=== PATIENT | female | born 2000 | race Caucasian/White ===

== ENCOUNTER 2021-12-26 20:28 | Emergency (ER) | payer OTHER ==
[2021-12-26 22:24] LABS: BASOPHIL 0.3 % (0-2); EOSINOPHIL 1.7 % (0-5); HCT 44.3 % (37.0-47.0); HGB 14.4 g/dl (12.5-16.0); LYMPHOCYTE 23.5 % (15-48); MCH 28.3 pg (25.0-31.0); MCHC 32.5 g/dL (32.0-36.0); MONOCYTE 9.6 % (0-12); MPV 8.9 fL (6.0-9.5); NEUTROPHIL 64.5 % (41-80); NRBC 0; PLT 443 K/uL (150-400); RBC 5.09 M/uL (4.20-5.40); RDW 12.6 % (11.5-14.0); WBC 15.4 K/uL (4.0-10.5)
[2021-12-26 22:24] LABS: BILIRUBIN NEGATIVE (NEGATIVE); BLOOD NEGATIVE Ery/uL (NEGATIVE); CLARITY CLEAR (CLEAR); COLOR YELLOW (YELLOW); GLUCOSE (U) NORMAL (NORMAL); LEUKOCYTES NEGATIVE Leu/uL (NEGATIVE); NITRITE NEGATIVE (NEGATIVE); PROTEIN NEGATIVE (NEGATIVE); SPECIFIC GRAVITY 1.025 (1.001-1.030); UROBILINOGEN 0.2 mg/dL (0.2-1.0)
[2021-12-26 22:45] LABS: ALBUMIN 3.9 g/dL (3.4-5.0); BILIRUBIN - TOTAL 0.2 mg/dL (0.2-1.0); BUN/CREAT RATIO (CALC) 15.6 RATIO; CREATININE 0.64 mg/dL (0.51-0.95); GLOBULIN (CALCULATION) 3.4 g/dL; POTASSIUM 3.8 mmol/L (3.5-5.1); TOTAL PROTEIN 7.3 g/dL (6.4-8.2)
[2021-12-26] MEDS ORDERED: NAPROXEN500 MG PO (23:23)
[2021-12-26] MEDS ORDERED: ONDANSETRON ODT4 MG PO (23:23)
[2021-12-26] MEDS ORDERED: PERCOCET 5-3251 EACH PO (23:23)
== END 2021-12-26 23:47 | disposition home or self-care (01) ==
LOC: FER 20:28
PROVIDERS: Internal Medicine
DX: R10.11 Right upper quadrant pain (principal)
CPT/HCPCS: 36415; 80053; 81003; 83690; 85025; J2405

== ENCOUNTER → 2022-02-12 | Day surgery (SDC) | payer OTHER ==
[~2022-02-12] VITALS: Ht 167.6 cm; Wt 99.8 kg
[~2022-02-12] MED LIST: NAPROXEN500 MG PO; ONDANSETRON ODT4 MG PO; PERCOCET 5-3251 EACH PO
[2022-02-12 13:29] LABS: HCG (URINE) SCREEN NEGATIVE (NEGATIVE)
== END | disposition home or self-care (01) ==
LOC: FAS 12:00
PROVIDERS: Anesthesiology
DX: K31.9 Disease of stomach and duodenum, unspecified (principal); Z97.5 Presence of (intrauterine) contraceptive device
CPT/HCPCS: 84703; J2704; J7120